=== PATIENT | female | born 1965 | race Two or more races ===

== ENCOUNTER → 2019-06-27 | Outpatient (CLI) | payer SELFPAY ==
--- NOTE | 2019-06-27 10:17 | RAD ---
DATE: 06/27/2019. EXAM: DIGITAL DIAGNOSTIC LT, US GUID NDL PLACE/ASPI/BX. HISTORY: Left breast mass. Biopsy is requested. COMPARISON: 05/07/2019. FINDINGS: The procedure along with its risks and benefits were expanded the patient via pension agent. She agreed to proceed. A timeout procedure was performed. The left breast mass was visualized sonographically at the 12:00 position 7 cm from the nipple. Sonographic survey of the axilla reveal no enlarged lymph nodes. The skin overlying the mass was sterilely prepped and infiltrated with 1% lidocaine for local anesthesia. Under ultrasound guidance, 3 14-gauge core specimens were obtained and submitted in formalin. A postbiopsy clip was placed within the mass under ultrasound guidance. Instrumentation was withdrawn and a sterile dressing placed. There were no immediate complications. Digital images of the left breast were obtained in CC and MLO projections and interpreted on a dedicated workstation. The postbiopsy clip projects 9 mm posterior to the mammographic mass. Some architectural distortion extending anteriorly from the mass suggests an intraductal component. IMPRESSION: 1. Successful ultrasound-guided biopsy of a left breast mass at the 2:00 position 7 cm from the nipple. 2. The postbiopsy clip is 9 mm posterior to the mammographic mass. 3. Architectural distortion extending anteriorly from the mass suggests an intraductal component. Breast MRI could further stage extent and exclude multicentric or bilateral involvement.
--- NOTE | 2019-06-29 22:06 | PATHOLOGY ---
[facility] Accession Number: [id number] . 01 Material submitted: . breast - LEFT BREAST MASS, 12:00 7CMFN. Modifiers: left, 12:00 . 01 Clinical history: . Left breast mass 2.1 cm . 02 Diagnosis: "Left breast mass 12:00, 7cmfn, 2.1 cm", needle biopsy: - INVASIVE DUCTAL CARCINOMA, MODERATELY DIFFERENTIATED, GRADE II, INVOLVING MULTIPLE CORES, LONGEST CONTIGUOUS FOCUS MEASURING 0.9 CM ON THE SLIDE. (SEE COMMENT). (CLW:erasmo; 06/28/2019) . Specimen type: Needle biopsy; Tumor site: Left breast 12:00, 7 cmfn; Tumor quantitation: Involving multiple cores, longest contiguous focus measuring 0.9 cm on the slide; Histologic type: Invasive ductal carcinoma; Histologic grade: Grade II, moderately differentiated; Tubules, nuclei and mitoses: Tubules score-2, nuclei score-2, mitoses score-2; LVSI: Not identified; Microcalcifications: Not identified; Markers: ER, CA, HER2 and Ki67; Block: Pending on block A1. MBR 06/28/2019 1245 Local . 02 Comment: The case is co-reviewed with Dr. Gaurang Marsh. The case is discussed with Susu, nurse with Dr. Burton, on 06/29/19 at 1:45 PM. (CLW:erasmo; 06/28/2019) . 02 Electronically signed: . Leatha Kelsey MD, Pathologist NPI- [id number] . 01 Gross description: . The specimen is received in formalin, labeled "Lazara Longoria, left breast". The specimen is additionally labeled on the requisition as, "left breast mass 12:00 7 cm from nipple 2.1 cm". Received are multiple needle cores of fibrofatty tissue measuring 1.2 x 1.0 x 0.2 cm in aggregate dimensions. The specimen is submitted entirely in cassettes A1 through A3. The cold ischemic time is 5 minutes. The total formalin fixation time is 12 hours and 10 minutes. (CAA; 06/27/2019) QAC/QAC 06/28/2019 1238 Local . 02 Pathologist provided ICD-10: C50.912 . 02 CPT . 554522 Specimen Comment: A courtesy copy of this report has been sent to [phone], [phone] Specimen Comment: [id number] Specimen Comment: Report sent to / DR BURTON Performed at: 01 [facility] [address], [place] [id number] MD Ernst Bhakta MD Phone: [phone] Performed at: 02 [facility] [address] [place], [place] [id number] MD Kush Winters MD Phone: [phone]
== END ==
LOC: EDUNIT# 08:30 → US 08:43
PROVIDERS: ATTEND Family Medicine
DX: N63.20 Unspecified lump in the left breast, unspecified quadrant (principal); C50.912 Malignant neoplasm of unspecified site of left female breast
CPT/HCPCS: 19083; 77065; 88305; 88361; C1713; 19081; 76942